=== PATIENT | male | born 1995 | race Caucasian/White ===

== ENCOUNTER 2016-08-21 22:39 | Emergency (ER) | payer OTHER | END 2016-08-21 23:59 | disposition home or self-care (01) | LOC: ER 22:39 | DX: F41.0 Panic disorder [episodic paroxysmal anxiety] (principal); R07.89 Other chest pain; R20.0 Anesthesia of skin; R06.02 Shortness of breath; F17.210 Nicotine dependence, cigarettes, uncomplicated | CPT/HCPCS: 93005; 96374; 99284-25 ==

== ENCOUNTER 2016-12-02 20:37 | Emergency (ER) | payer OTHER | END 2016-12-02 21:17 | disposition home or self-care (01) | LOC: ER 20:37 | DX: S60.562A Insect bite (nonvenomous) of left hand, initial encounter (principal); W57.XXXA Bitten or stung by nonvenomous insect and other nonvenomous arthropods, initial encounter; Z87.891 Personal history of nicotine dependence | CPT/HCPCS: 96372; 99282-25; J2930 ==